=== PATIENT | female | born 1960 | race Caucasian/White ===

== ENCOUNTER 2023-01-08 09:54 | Day surgery (SDC) | payer BC ==
[2023-01-04 15:37] LABS: BASOPHILS % (AUTO) 0.3 % (0-1); EOSINOPHILS # (AUTO) 0.1 X10'3 (0-0.9); EOSINOPHILS % (AUTO) 2.2 % (0-6); LYMPHOCYTES # (AUTO) 2.5 X10'3 (1.1-4.8); LYMPHOCYTES % (AUTO) 40.3 % (21-51); MEAN CORPUSCULAR HEMOGLOBIN 33.1 PG (27.0-31.0); MEAN CORPUSCULAR HGB CONC 34.1 g/dL (33.0-36.5); MEAN CORPUSCULAR VOLUME 97.2 FL (78-98); MEAN PLATELET VOLUME 10.6 FL (7.4-10.4); MONOCYTES # (AUTO) 0.5 X10'3 (0-0.9); NEUTROPHILS # (AUTO) 3.1 X10'3 (1.8-7.7); NEUTROPHILS % (AUTO) 49.2 % (42-75); PRE OP HEMATOCRIT 43.9 % (35.0-45.0); PRE OP PLATELET COUNT 171 X10'3 (140-440); RED BLOOD COUNT 4.52 X10'6 (4.20-5.60)
[2023-01-04 15:49] LABS: PRE OP PROTIME 10.3 SECONDS (9.0-12.0)
[2023-01-04 15:53] LABS: ALBUMIN 4.4 G/DL (3.4-5.0); ALBUMIN/GLOBULIN RATIO 1.5 (1.1-1.5); ALKALINE PHOSPHATASE 92 IU/L (46-116); BLOOD UREA NITROGEN 10 MG/DL (7-18); BUN/CREATININE RATIO 12.8 (10.0-20.0); CALCIUM 9.1 MG/DL (8.5-10.1); CHLORIDE 101 MMOL/L (99-107); CREATININE 0.78 MG/DL (0.40-0.90); PRE OP ALT 31 U/L (30-65); PRE OP ANION GAP 12 (8-16); PRE OP AST 23 U/L (10-37); PRE OP BILIRUB, TOTAL 0.9 MG/DL (0.0-1.0); PRE OP GLUCOSE 90 MG/DL (70-104); PRE OP POTASSIUM 3.5 MMOL/L (3.4-5.1); PRE OP SODIUM 139 MMOL/L (135-145); TOTAL CARBON DIOXIDE 25.7 MMOL/L (24-32); TOTAL PROTEIN 7.4 G/DL (6.4-8.2); eGFR 75 ML/MIN
[2023-01-04 17:00] LABS: TOTAL CELLS COUNTED 100
[2023-01-04 17:22] LABS: LARGE PLATELETS FEW; PLATELET ESTIMATE NORMAL
[2023-01-08] VITALS (13 sets, daily range): BP systolic 147–165; BP diastolic 87–102; PULSE 59–82; RESP 12–18; TEMP 97.9; O2SAT 96–100
[~2023-01-08] VITALS: Ht 172.7 cm; Wt 74.6 kg
[2023-01-08] MEDS: cefazolin 2gm/D5W 100mL 100 ML IV ONE (05:30)
[~2023-01-08 09:54] MED LIST: CHOL20002 PO; DOCUMENT DATE & TIME OF BETA-BLOCKER PO ONE; FIBERWELL; MAGN400C PO; METO-395 PO; MULT-1085 PO; famotidine 20mg tablet PO ONE; ringers solution, lacted 1,000 ML IV SCH
[2023-01-08] MEDS ORDERED: LIDOcaine 1% (10mg/ml)w/preservative inj. 20ml MDV ONE (10:48)
[2023-01-08] MEDS ORDERED: methylene blue (5mg/ml) 50mg/10ml ampul IV ONE (10:48)
[2023-01-08] MEDS ORDERED: BUPIVAcaine/PF 2.5mg/ml (0.25%) 10ml vial ONE (10:48)
[2023-01-08] MEDS ORDERED: BUPIVACAINE liposomal/PF 13.3 MG/ML vial IM ONE (10:49)
[2023-01-08] MEDS ORDERED: morphine 4 MG/ML inj SYRINge IV PRN (11:20)
[2023-01-08] MEDS ORDERED: proCHLORperazine 10 MG/2 ml inj IV PRN (11:20)
[2023-01-08] MEDS ORDERED: acetaminophen 1,000mg/100ml IV 100 ML IV PRN (11:20)
[2023-01-08] MEDS ORDERED: hydrALAZINE 20mg/ml inj. IV PRN (11:20)
[2023-01-08] MEDS ORDERED: HYDROmorphone/PF 0.2 MG/ML SYRINGE IV PRN ×2 (11:20)
[2023-01-08] MEDS ORDERED: labetalol 20mg/4ml (5mg/ml) syringe IV PRN (11:20)
[2023-01-08] MEDS ORDERED: ondansetron/PF 4mg/2ml inj IV PRN (11:20)
[2023-01-08] MEDS ORDERED: ringers solution, lacted 1,000 ML IV SCH (11:20)
[2023-01-08] MEDS ORDERED: morphine 2 MG/ML inj. syringe IV PRN (11:20)
--- NOTE | 2023-01-08 13:05 | NUR ---
2GM ANCEF WAS ACCIDENTALLY INFUSED PREOPERATIVELY, PATIENT ADVISED THAT IT JUST FINISHED. CALLED DR WYNN TO ADVISE. NO NEW ORDERS AT THIS TIME. CHANGED NON-ADMIN ANCEF TO ADMINISTERED ON EMAR.
[2023-01-08] MEDS ORDERED: sevoflurane 250ml liquid IH ONE (14:14)
[2023-01-08] MEDS ORDERED: midazolam 1 mg/ML 2ml injection ONE (14:22)
[2023-01-08] MEDS ORDERED: fentaNYL /PF 50mcg/ml 5ml ampule ONE (14:38)
[2023-01-08] MEDS ORDERED: LIDOcaine 2% (20mg/ml) 5ml vial ONE (14:44)
[2023-01-08] MEDS ORDERED: ondansetron/PF 4mg/2ml inj ONE (14:44)
[2023-01-08] MEDS ORDERED: dexamethasone sod phosphate 4mg/ml inj. ONE (14:44)
[2023-01-08] MEDS ORDERED: propofol inj 20 ML IV ONE (14:44)
[2023-01-08] MEDS ORDERED: LIDOcaine 1% 30ml preserv. free vial IJ ONE (15:22)
--- NOTE | 2023-01-08 16:03 | NUR ---
Received from OR via [facility], accompanied by Anesthesiologist DR GIBBONS and report given by Anesthesiologist AND COLD REDUCTION ROLLER. PT DROWSY, DENIES PAIN. LEFT BREAST W/GAUZE COVERING INCISION W/BREAST BINDER COVERING CDI. Addendum: 01/08/23 at 1633 by Jayne Rea RN Amended: Links added. Addendum: 01/08/23 at 1859 by Jayne Rea RN LATE ENTRY- LEONARD HINDS APPLIED TO PT.
--- NOTE | 2023-01-08 18:13 | NUR ---
PT UP AND ABLE TO AMBULATE SAFELY, VOIDED X 1, STATES PAIN IS TOLERABLE AND JUST HAS SLIGHT DISCOMFORT. D/C INSTRUCTIONS GIVEN AND GONE OVER W/PT WHO VERBALIZED UNDERSTANDING. PT D/CD TO HOME VIA W/C TO PRIVATE VEHICLE W/O INCIDENT. Addendum: 01/08/23 at 1858 by Jayne Rea RN Amended: Links added.
== END 2023-01-08 18:13 | disposition home or self-care (01) ==
LOC: PAS 09:54
PROVIDERS: ATTEND Surgery
DX: D05.12 Intraductal carcinoma in situ of left breast (principal); I10 Essential (primary) hypertension; Z88.5 Allergy status to narcotic agent; Z79.899 Other long term (current) drug therapy; Z98.890 Other specified postprocedural states; Z79.01 Long term (current) use of anticoagulants; Z80.3 Family history of malignant neoplasm of breast; Z80.0 Family history of malignant neoplasm of digestive organs; Z80.8 Family history of malignant neoplasm of other organs or systems
CPT/HCPCS: 19301; 36415; 38525; 38900; 76098; 80053; 82948; 85025; 85610; 85730; 93005; J0131; J0690; J1100; J2250; J2405; J2704; J3010; J3490; J7030; J7120; Q9968; Z7506; Z7508; Z7512; 85007; A4215; A4618; A6258; A7000; C9290